=== PATIENT | male | born 1935 | race Caucasian/White ===

== ENCOUNTER 2022-10-07 11:15 | Emergency (ER) | payer MEDICARE, BC, SELFPAY ==
[2022-10-07 11:28] VITALS: BP 136/68; PULSE 88; RESP 20; TEMP 37.9; O2SAT 96
--- NOTE | 2022-10-07 12:15 | ED.URI ---
HPI - URI/Sore Throat General Chief Complaint: Upper Respiratory Infection Stated Complaint: Sore Throat Time Seen by Provider: 10/07/22 12:15 Source: patient, RN notes reviewed and old records reviewed Mode of arrival: ambulatory Limitations: no limitations History of Present Illness HPI Narrative: 87-year-old male accompanied by daughter presents to express care with complaints of severe sore throat which started on , 4-5 days duration of symptoms. Patient reports that he can barely swallow difficult to get anything down fluids or fluids down. Patient reports that he has tried cough drops and has taken some NyQuil that is safe for hypertension and used nasal spray..Patient reports that he got his tonsil out when he was a kid. Patient reports that he has had COVID vaccinations and also flu shot MD elicited complaint: sore throat and other (painful swallowing) Pertinent past history: pneumonia Onset (ago): day(s) (4-5 days duration) Pain scale (0-10): 9 Treatments prior to arrival: other (NyQuil and nasocort) Related Data Home Medications Medication Instructions Recorded Confirmed cholecalciferol (vitamin D3) 25 25 mcg PO DAILY 10/07/22 10/07/22 mcg (1,000 unit) tablet (Vitamin D3) levothyroxine 150 mcg tablet 150 mcg PO DAILY 10/07/22 10/07/22 magnesium 250 mg tablet 500 mg PO WEEKLY 10/07/22 10/07/22 mecobalamin (vitamin B12) 10,000 mcg 10/07/22 mcg solution for injection triamterene 37.5 37.5 tablet PO DAILY 10/07/22 10/07/22 mg-hydrochlorothiazide 25 mg tablet vitamin B complex (B 1 tablet PO DAILY 10/07/22 10/07/22 Complex-Vitamin B12 tablet) Allergies Allergy/AdvReac Type Severity Reaction Status Date / Time No Known Allergies Allergy Unknown Verified 07/04/08 09:41 Review of Systems Review of Systems: CONSTITUTIONAL: Reports malaise, chills, sweats, or fever. EYES: Denies visual changes, redness, or discharge. ENT: Reports rhinorrhea, congestion,no sinus pain, no otalgia severe sore throat. CARDIOVASCULAR: Denies chest pain, palpitations, or edema. RESPIRATORY: Reports rare dry cough.? Denies dyspnea. GASTROINTESTINAL: Denies abdominal pain, nausea, vomiting, diarrhea SKIN: Denies rash or itching. MUSCULOSKELETAL: Denies myalgia. NEUROLOGIC: Denies headache. All systems reviewed & are unremarkable except as noted in HPI and below PMFSH Past Medical History Medical History (Updated 10/08/22 @ 07:36 by Beti Babin NP) Hypertension Hypothyroid Pneumonia Surgical History Surgical History (Updated 10/08/22 @ 07:28 by Beti Babin NP) History of tonsillectomy and adenoidectomy Social History Social History (Updated 10/08/22 @ 07:30 by Beti Babin NP) Smoking status: Former smoker Additional smoking assessment comments: quit when he was in his 30's Alcohol intake: unknown Substance use: never Substance use type: does not use Gender identity (if verbalized by the patient): Male Comments At time of signature, agree with nursing past medical, surgical, social and family history. There is no relevant family history pertinent to the presenting complaint Exam Narrative: GENERAL: Well-appearing, well-nourished, and in no acute distress. HEAD: Normocephalic EYES: PERRLA, conjunctivae clear ENT: Nares clear, turbinates edematous and erythematous, clear discharge. Mucous membranes moist. TM pearly tello with dull light reflex bilaterally; no tragal tenderness. Oropharynx erythematous with some swelling without lesions. Tonsils not present and without exudate, drooling, some hoarseness, no trismus, uvula midline extremely red and swollen. NECK: Supple. No lymphadenopathy CHEST: Clear to auscultation, breath sounds equal. No wheezing, rhonchi, rales, or stridor. No respiratory distress, speaks in full sentences.no acute cough.SAO2 96% on room air HEART: Regular rate and rhythm. No murmur heard. SKIN: Warm, dry, no rash. NEURO:
== END 2022-10-07 12:31 | disposition home or self-care (01) ==
PROVIDERS: Emergency Provider Registered Nurse; PCP Internal Medicine
DX: J02.9 Acute pharyngitis, unspecified (principal); K12.2 Cellulitis and abscess of mouth; I10 Essential (primary) hypertension; E03.9 Hypothyroidism, unspecified; Z87.891 Personal history of nicotine dependence
CPT/HCPCS: 87081; 87880; 99213; G0463

== ENCOUNTER 2024-01-27 10:34 | Outpatient (CLI) | payer MEDICARE, BC, SELFPAY ==
--- NOTE | ~2024-01-27 | CT_ITS ---
EXAMINATION: CT abdomen pelvis wo con DATE: 01/27/2024 10:51 INDICATION: Bladder stone. TECHNIQUE: Computed tomography (CT) of the abdomen and pelvis was performed without intravenous contr ast. Automated exposure control and iterative reconstruction technique were employed. The dose-length product was 592.54 mGy-cm. COMPARISON: None. FINDINGS: There are calcified pleural plaques bilaterally, which may be seen with asbestos exposure. The visualized portions of the lung bases demonstrate peripheral septal thickening associated with mi ld groundglass opacities, consistent with chronic interstitial lung disease (asbestosis). There is a small right pleural effusion. Cardiomegaly is noted. There are coronary artery calcifications. There are calcifications in the aortic valve. No pericardial effusion. Calcifications in the liver and spl een are consistent with old granulomatous disease. There are gallstones in the gallbladder, which is normal in size. The pancreas, adrenal glands, and left kidney are normal. There is 1.9 cm cyst in rig ht kidney. 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 There is calcified atherosclerosi s of the aorta and many of the other arteries. The prostate is mildly enlarged. The bladder is decomp ressed by a Pearl catheter. There is a T-shaped stone versus cluster of stones in the bladder measuri ng up to 3.0 cm. There is diverticulosis of the colon without evidence of diverticulitis. The appendi x is normal. There are no pathologically enlarged lymph nodes. There is no free intraperitoneal fluid . There is moderate lumbar spondylosis. There is severe thoracic spondylosis. IMPRESSION: 1. 3.0 cm T-shaped stone versus cluster of stones in the bladder. 2. 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 3. Asbestosis. 4. Small right pleural effusion. Reviewed, dictated and finalized at location A.
== END 2024-01-27 10:35 ==
LOC: GOSHIMG 10:36
PROVIDERS: PCP Internal Medicine; Visit Provider Nurse Practitioner
DX: N21.0 Calculus in bladder (principal); I71.43 Infrarenal abdominal aortic aneurysm, without rupture; J61 Pneumoconiosis due to asbestos and other mineral fibers; J90 Pleural effusion, not elsewhere classified
CPT/HCPCS: 74176